=== PATIENT | female | born 1960 | race Caucasian/White ===

== ENCOUNTER 2016-05-06 12:19 | Emergency (ER) | payer OTHER ==
[2016-05-06 12:54] VITALS: BP 132/67
[2016-05-06] MEDS ORDERED: Ipratropium 0.5MG/2.5ML NEB* 0.5 MG/2.5 ML NEB.SOLN INH ONE (13:02)
--- NOTE | 2016-05-06 13:08 | UC ---
Respiratory Complaint HPI - HPI Summary HPI Summary: Started with dry cough about 3 weeks ago. Cough continued and gradually worsened , and this week getting more productive cough, SOB with exertion, and occ coughing fits that last several minutes. Denies fever or post-tussive vomiting. No nasal congestion or ST at beginning. Is waking up with nighttime symptoms. - History of Current Complaint Chief Complaint: UCGeneralIllness Stated Complaint: URI Time Seen by Provider: 05/06/16 12:55 Hx Obtained From: Patient ?: No Onset/Duration: Gradual Onset, Lasting Weeks Timing: Constant Severity Initially: Mild Severity Currently: Moderate - Allergies/Home Medications Allergies/Adverse Reactions: Allergies Allergy/AdvReac Type Severity Reaction Status Date / Time No Known Allergies Allergy Verified 10/12/15 14:00 PMH/Surg Hx/FS Hx/Imm Hx Previously Healthy: Yes Endocrine History Of: Denies: Diabetes, Thyroid Disease Cardiovascular History Of: Denies: Cardiac Disorders, Hypertension Respiratory History Of: Denies: COPD, Asthma GI/ History Of: Denies: Ulcer Cancer History Of: Denies: Breast Cancer - Surgical History Surgical History: Yes Surgery Procedure, Year, and Place: jaw surgery. bilat breast bx - Family History Known Family History: Positive: Hypertension - DAD Family History: MOM - ARRHYTHMIA S/P PACEMAKER, DAD - CANCER - Social History Lives: With Family Alcohol Use: Occasionally Substance Use Type: None Smoking Status (MU): Never Smoked Tobacco Review of Systems Constitutional: Negative Skin: Negative Eyes: Negative ENT: Negative Respiratory: Shortness Of Breath, Cough Cardiovascular: Negative Gastrointestinal: Negative Genitourinary: Negative Motor: Negative Neurovascular: Negative Musculoskeletal: Negative Neurological: Negative Psychological: Negative All Other Systems Reviewed And Are Negative: Yes Physical Exam Triage Information Reviewed: Yes Appearance: Ill-Appearing - constant coughing with difficulty speaking through exam Vital Signs: Initial Vital Signs Temp 97.8 F 05/06/16 12:50 Pulse 73 05/06/16 12:50 Resp 16 05/06/16 12:50 BP 132/67 05/06/16 12:50 Pulse Ox 99 05/06/16 12:50 Vital Signs Reviewed: Yes Eye Exam: Normal Eyes: Positive: Conjunctiva Clear ENT: Positive: Normal ENT inspection, Hearing grossly normal, Pharynx normal, TMs normal. Negative: Nasal congestion Dental Exam: Normal Neck exam: Normal Neck: Positive: Supple, Nontender, No Lymphadenopathy Respiratory Exam: Other - constant dry cough with gagging Respiratory: Positive: Chest non-tender, Lungs clear, Normal breath sounds Cardiovascular Exam: Normal Cardiovascular: Positive: RRR, No Murmur Musculoskeletal Exam: Normal Neurological Exam: Normal Psychological Exam: Normal Skin Exam: Normal UC Diagnostic Evaluation - Laboratory O2 Sat by Pulse Oximetry: 99 Respiratory Course/Dx - Differential Dx/Diagnosis Provider Diagnoses: bronchitis Discharge - Discharge Plan Condition: Stable Disposition: HOME Prescriptions: Acetaminop/Codeine 30 MG TAB* [Tylenol/Codeine 30 MG TAB*] 1 - 2 tab PO BEDTIME PRN #15 tab MDD 2 PRN Reason: Cough Azithromycin TAB* [Zithromax TAB*] 250 mg PO SEE INSTRUCTIONS #6 tab Benzonatate CAP* [Tessalon CAP*] 100 mg PO TID PRN #30 cap PRN Reason: Cough Ipratropium HFA INHALER* [Atrovent Hfa Inhaler*] 2 puff INH TID #1 mdi Patient Education Materials: Acute Bronchitis (ED) Referrals: Denys Street MD [Primary Care Provider] - 4 Days Additional Instructions: You are being tested and treated for pertussis (whooping cough) today. Please see your primary care provider this week for a recheck.
--- NOTE | 2016-05-06 13:42 | RAD ---
INDICATION: Cough COMPARISON: October 12, 2015 TECHNIQUE: PA and lateral dual-energy views were obtained. FINDINGS: Bones/Soft Tissues: There are no acute bony findings. Cardiomediastinal: The cardiomediastinal silhouette is normal. Lungs: There are no infiltrates. Pleura: There are no pleural effusions. Other: None IMPRESSION: NO ACTIVE DISEASE
== END 2016-05-06 13:53 | disposition home or self-care (01) ==
LOC: UCEAST 12:19
DX: J40 Bronchitis, not specified as acute or chronic (principal)
CPT/HCPCS: 71020; 87798; 99212; G0463; J7644

== ENCOUNTER 2018-04-23 07:45 | Emergency (ER) | payer OTHER ==
[2018-04-23 07:59] VITALS: BP 140/71
--- NOTE | 2018-04-23 09:07 | UC ---
Respiratory Complaint HPI - HPI Summary HPI Summary: 2 WEEKS OF PERSISTENT COUGH, CONGESTION WITH PURULENT NASAL DISCHARGE, INTERMITTENT LOW-GRADE FEVER, SORE THROAT AND SINUS CONGESTION. FEELS FATIGUED. EARS ARE PLUGGED. SX ARE NOT IMPROVING AT ALL. IS SUPPOSED TO BE TRAVELING OUT OF STATE TODAY FOR A CONFERENCE BUT DOES NOT FEEL WELL ENOUGH TO TRAVEL. - History of Current Complaint Chief Complaint: UCRespiratory Stated Complaint: FEVER COUGH RESP ISSUE Time Seen by Provider: 04/23/18 08:17 Hx Obtained From: Patient Onset/Duration: Gradual Onset, Lasting Weeks, Still Present Timing: Constant Severity Initially: Moderate Severity Currently: Moderate Pain Intensity: 4 Pain Scale Used: 0-10 Numeric Character: Cough: Productive Aggravating Factors: Nothing Alleviating Factors: Nothing Associated Signs And Symptoms: Positive: Fever, Chills, URI, Nasal Congestion, Sinus Discomfort. Negative: Wheezing - Allergies/Home Medications Allergies/Adverse Reactions: Allergies Allergy/AdvReac Type Severity Reaction Status Date / Time borax Allergy Hives Uncoded 04/23/18 07:59 Home Medications: Home Medications Elderberry Fruit/Honey [Little Remedies Cough-Immune] 1 dose PO Q3HR PRN [History Confirmed 04/23/18] GuaiFENesin DM sugar free* [Robitussin DM sugar free*] 10 ml PO Q4HR PRN [History Confirmed 04/23/18] PMH/Surg Hx/FS Hx/Imm Hx Previously Healthy: Yes - Surgical History Surgical History: Yes Surgery Procedure, Year, and Place: jaw surgery. bilat breast bx - Family History Known Family History: Positive: Hypertension - DAD Family History: MOM - ARRHYTHMIA S/P PACEMAKER, DAD - CANCER - Social History Alcohol Use: Occasionally Substance Use Type: None Smoking Status (MU): Never Smoked Tobacco Review of Systems All Other Systems Reviewed And Are Negative: Yes Constitutional: Positive: Fever, Chills, Fatigue ENT: Positive: Sore Throat, Ear Ache, Nasal Discharge, Sinus Congestion, Sinus Pain/Tenderness Respiratory: Positive: Cough Cardiovascular: Positive: Negative Gastrointestinal: Positive: Negative Neurological: Positive: Headache Physical Exam Triage Information Reviewed: Yes Appearance: No Pain Distress, Well-Nourished, Ill-Appearing - moderate Vital Signs: Initial Vital Signs Temp 98.9 F 04/23/18 07:54 Pulse 74 04/23/18 07:54 Resp 18 04/23/18 07:54 BP 140/71 04/23/18 07:54 Pulse Ox 96 04/23/18 07:54 Vital Signs Reviewed: Yes Eyes: Positive: Conjunctiva Clear ENT: Positive: Hearing grossly normal, Pharynx normal, Nasal congestion, Nasal drainage, TMs normal, Hoarse voice Neck: Positive: Supple, Nontender, No Lymphadenopathy Respiratory Exam: Normal Cardiovascular Exam: Normal Abdomen Description: Positive: Soft Musculoskeletal: Positive: No Edema Neurological: Positive: Alert Psychological: Positive: Age Appropriate Behavior Skin: Negative: Rashes UC Diagnostic Evaluation - Laboratory O2 Sat by Pulse Oximetry: 96 Respiratory Course/Dx - Differential Dx/Diagnosis Provider Diagnosis: Acute rhinosinusitis Discharge - Sign-Out/Discharge Documenting (check all that apply): Patient Departure All imaging exams completed and their final reports reviewed: No Studies - Discharge Plan Condition: Stable Disposition: HOME Prescriptions: Codeine Phosphate/Guaifenesin [Codeine-Guaifen 10-100 mg/5 ml] 5 - 10 ml PO Q6H PRN #150 ml MDD 40ML PRN Reason: Cough Doxycycline Monohydrate 1 cap PO BID #20 cap Fluconazole [Diflucan] 1 tab PO ONCE #2 tab Patient Education Materials: Rhinosinusitis (ED) Forms: *Gen. Provider Communication Referrals: Aby Morse MD [Primary Care Provider] - If Needed Additional Instructions: TAKE THE ANTIBIOTICS FOR THE FULL COURSE. BE AWARE THAT DOXYCYCLINE CAN MAKE YOU MORE SENSITIVE TO UV RAYS AND TAKE APPROPRIATE SUN PRECAUTIONS. REST, HYDRATE, OTC MEDS NEEDED. WILL ALSO GIVE COUGH MEDICINE. SEEK FOLLOW-UP IF YOU ARE NOT IMPROVING OVER THE NEXT 1-2 WEEKS. - Billing Disposition and Condition Condition: STABLE Disposition: Home
== END 2018-04-23 08:52 | disposition home or self-care (01) ==
LOC: UCEAST 07:45
DX: J01.90 Acute sinusitis, unspecified (principal)
CPT/HCPCS: 99212; G0463

== ENCOUNTER 2018-06-27 03:51 | Emergency (ER) | payer OTHER ==
[2018-06-27] MEDS ORDERED: NS 0.9% 1000 ML** 1,000 ML IV ONE ×2 (04:12→05:08)
[2018-06-27] MEDS ORDERED: Ondansetron INJ* 2 MG/ML VIAL IV ONE (04:14)
[2018-06-27] MEDS ORDERED: Diphenoxylat/Atrop 2.5-0.025M* 1 TAB PO ONE (04:14)
--- NOTE | 2018-06-27 04:15 | ED ---
GI/ HPI - HPI Summary HPI Summary: This pt is a 58 y/[facility], vomiting, and diarrhea since 22:00 last night, 06/26/18. She states she has had multiple episodes of emesis. Pt reports she has had about 4 episodes of diarrhea so far. She presents with a low grade fever of 100 F today. Additionally notes intermittent abd cramping. Pt states her and her ate the same thing during dinner last night. She notes she has not vomited like this in such a long time. Denies hx abdominal surgeries. - History of Current Complaint Chief Complaint: EDNauseaVomitDiarrh Time Seen by Provider: 06/27/18 04:06 Stated Complaint: VOMITING,DIFF BREATHING-PER PT Hx Obtained From: Patient Onset/Duration: Started Hours Ago, Still Present Timing: Lasting Hours Current Severity: Moderate Pain Intensity: 0 - denies any pain Associated Signs and Symptoms: Positive: Nausea, Vomiting, Diarrhea, Fever, Abdominal Pain Aggravating Factor(s): Nothing Alleviating Factor(s): Nothing - Allergy/Home Medications Allergies/Adverse Reactions: Allergies Allergy/AdvReac Type Severity Reaction Status Date / Time borax Allergy Hives Uncoded 04/23/18 07:59 PMH/Surg Hx/FS Hx/Imm Hx Endocrine/Hematology History: Denies: Hx Diabetes, Hx Thyroid Disease Cardiovascular History: Denies: Hx Hypertension Comment Only: Other Cardiovascular Problems/Disorders - MYTROVALVE PROLAPSE Respiratory History: Denies: Hx Asthma, Hx Chronic Obstructive Pulmonary Disease (COPD) GI History: Denies: Hx Ulcer - Cancer History Hx Chemotherapy: No Hx Radiation Therapy: No - Surgical History Surgery Procedure, Year, and Place: jaw surgery. bilat breast bx Infectious Disease History: No Infectious Disease History: Reports: Hx Shingles Denies: Hx Hepatitis, Hx Human Immunodeficiency Virus (HIV), History Other Infectious Disease, Traveled Outside the [place] in Last 30 Days - Family History Known Family History: Positive: Hypertension - DAD Family History: MOM - ARRHYTHMIA S/P PACEMAKER, DAD - CANCER - Social History Alcohol Use: Occasionally Hx Substance Use: No Substance Use Type: Reports: None Hx Tobacco Use: No Smoking Status (MU): Never Smoked Tobacco Review of Systems Positive: Fever - low grade Positive: Abdominal Pain, Vomiting, Diarrhea, Nausea All Other Systems Reviewed And Are Negative: Yes Physical Exam - Summary Physical Exam Summary: VITAL SIGNS: Reviewed. GENERAL: Patient is a well-developed and nourished female who is lying comfortable in the stretcher. Patient is not in any acute respiratory distress. HEAD AND FACE: No signs of trauma. No ecchymosis, hematomas or skull depressions. No sinus tenderness. EYES: PERRLA, EOMI x 2, No injected conjunctiva, no nystagmus. EARS: Hearing grossly intact. Ear canals and tympanic membranes are within normal limits. MOUTH: Oropharynx within normal limits. NECK: Supple, trachea is midline, no adenopathy, no JVD, no carotid bruit, no c- spine tenderness, neck with full ROM. CHEST: Symmetric, no tenderness at palpation LUNGS: Clear to auscultation bilaterally. No wheezing or crackles. CVS: Regular rate and rhythm, S1 and S2 present, no murmurs or gallops appreciated. ABDOMEN: Soft, non-tender. No signs of distention. No rebound no guarding, and no masses palpated. Hyperactive bowel sounds. EXTREMITIES: FROM in all major joints, no edema, no cyanosis or clubbing. NEURO: Alert and oriented x 3. No acute neurological deficits. Speech is normal and follows commands. SKIN: Dry and warm Triage Information Reviewed: Yes Vital Signs On Initial Exam: Initial Vitals Temp Pulse Resp BP Pulse Ox 100 F 80 18 134/86 100 06/27/18 04:00 06/27/18 04:00 06/27/18 04:00 06/27/18 04:00 06/27/18 04:00 Vital Signs Reviewed: Yes Diagnostics - Vital Signs Vital Signs Temp Pulse Resp BP Pulse Ox 06/27/18 04:02 81 134/86 99 06/27/18 04:00 100 F 77 18 134/86 100 - Laboratory Result Diagrams: 06/27/18 04:22 06/27/18 04:22 Lab Statement: Any lab studies that have been ordered have been reviewed, and results considered in the medical decision making process. GIGU Course/Dx - Course Assessment/Plan: Pt is a 58 y/o female who presents with nausea, vomiting, and diarrhea since 22:00 last night, 06/26/18. Pt reports she has had about 4 episodes of diarrhea so far. She presents with a low grade fever of 100 F today. Additionally notes intermittent abd cramping. Pt states her and her ate the same thing during dinner last night. She notes she has not vomited in such a long time. Labs remarkable for WBC of 13.2. In the ED course the pt was given IV fluids, Reglan, Zofran, Lomotil, Tylenol. CT abdomen/pelvis was ordered. Pt will be signed out to Dr. Mcgarry, pending disposition, awaiting CT. - Diagnoses Provider Diagnoses: Abdominal pain Discharge - Sign-Out/Discharge Documenting (check all that apply): Sign-Out Patient Signing out patient TO: Dilshad Mcgarry - pending CT and dispo Patient Received Moderate/Deep Sedation with Procedure: No - Discharge Plan Condition: Stable Referrals: Aby Morse MD [Primary Care Provider] - - Attestation Statements Document Initiated by Scribe: Yes Documenting Scribe: Karime Saab Provider For Whom Scribe is Documenting (Include Credential): Gabriel Dietrich MD Scribe Attestation: IKarime, scribed for Gabriel Dietrich MD on 06/27/18 at 0656. Status of Scribe Document: Ready
[2018-06-27 04:30] LABS: ABS Basophils 0 10^3/ul (0-0.2); ABS Eosinophils 0 10^3/ul (0-0.6); ABS Lymphocytes 0.3 10^3/ul (1.0-4.8); ABS Monocytes 0.4 10^3/ul (0-0.8); ABS Neutrophils 12.4 10^3/ul (1.5-7.7); ABS Nucleated RBC 0 10^3/ul; Eosinophil % 0.1 %; Hematocrit 42 % (35-47); Hemoglobin 14.2 g/dl (12.0-16.0); Lymphocyte % 2.2 %; Mean Corpuscular HGB Conc 34 g/dl (31-36); Mean Corpuscular Hemoglobin 31 pg (27-31); Mean Corpuscular Volume 93 fL (80-97); Mean Platelet Volume 8.1 fL (7.4-10.4); Nucleated Red Blood Cells % 0; Platelet Count 168 10^3/ul (150-450); Red Blood Count 4.52 10^6/ul (4.00-5.40); Red Cell Distribution Width 13 % (10.5-15); White Blood Count 13.2 10^3/ul (3.5-10.8)
[2018-06-27 04:47] LABS: Albumin 4.3 g/dL (3.2-5.2); Albumin/Globulin Ratio 1.7 (1-3); BUN/Creatinine Ratio 23.1 (8-20); C Reactive Protein 5.39 mg/L (<8.01); Calcium 9.1 mg/dL (8.6-10.3); EGFR African American 91.8 (>60); EGFR Non-African American 75.9 (>60); Globulin 2.5 g/dL (2-4); Magnesium 1.7 mg/dL (1.9-2.7); Potassium 4.1 mmol/L (3.5-5.0); Total Bilirubin 0.8 mg/dL (0.2-1.0); Total Protein 6.8 g/dL (6.4-8.9)
[2018-06-27 05:08] LABS: Urine Appearance Clear; Urine Bilirubin Negative (Negative); Urine Blood Negative (Negative); Urine Color Yellow; Urine Glucose Negative (Negative); Urine Ketones Trace (Negative); Urine Nitrite Negative (Negative); Urine Protein Negative (Negative); Urine Specific Gravity 1.018 (1.010-1.030); Urine Urobilinogen Negative (Negative)
[2018-06-27] MEDS ORDERED: Metoclopramide IV* 5 MG/ML 2 ML VIAL IV SLOW PU ONE (05:08)
[2018-06-27] MEDS ORDERED: Acetaminophen TAB* 325 MG PO ONE (05:20)
[2018-06-27] MEDS ORDERED: Iohexol 300* (CONTRAST) 10 ML SDV IV ONE (05:32)
--- NOTE | 2018-06-27 07:22 | ED ---
Progress - Progress Note Progress Note: Receiving sign out from Dr. Dietrich, pending CT A/P. CT A/P: 1. Left renal lesion, probably cyst. 2. Retroverted uterus. 3. Small hiatus hernia. ED physician reviewed radiology report. Pt's condition has been stable. Pt will be discharged home with a final dx of gastroenteritis. She is agreeable with this plan. Re-Evaluation - Re-Evaluation First Eval Re-Evaluation Time: 07:40 Change: Improved Comment: Pt feels much better. Course/Dx - Diagnoses Provider Diagnoses: Abdominal pain Discharge - Sign-Out/Discharge Documenting (check all that apply): Patient Departure - Discharge, Receiving Sign-Out Receiving patient FROM: Gabriel Dietrich Patient Received Moderate/Deep Sedation with Procedure: No - Discharge Plan Condition: Stable Disposition: HOME Prescriptions: Ondansetron ODT TAB* [Zofran Odt TAB*] 4 mg PO Q6H PRN #20 tab.odt PRN Reason: Nausea/Vomiting Patient Education Materials: Gastroenteritis (ED) Referrals: Aby Morse MD [Primary Care Provider] - - Billing Disposition and Condition Condition: STABLE Disposition: Home - Attestation Statements Document Initiated by Scribe: Yes Documenting Scribe: Marsha Patel Provider For Whom Scribe is Documenting (Include Credential): Dilshad Mcgarry MD Scribe Attestation: Marsha Diaz, scrpoojaed for Dilshad Mcgarry MD on 06/27/18 at 0813. Scribe Documentation Reviewed: Yes Provider Attestation: The documentation as recorded by the Marsha hu accurately reflects the service I personally performed and the decisions made by me, Dilshad Mcgarry MD Status of Scribe Document: Viewed
[2018-06-27 07:52] VITALS: BP 104/56
== END 2018-06-27 08:02 | disposition home or self-care (01) ==
LOC: ED 03:51
DX: R10.9 Unspecified abdominal pain (principal); R11.2 Nausea with vomiting, unspecified; R19.7 Diarrhea, unspecified; R50.9 Fever, unspecified; N28.9 Disorder of kidney and ureter, unspecified; K44.9 Diaphragmatic hernia without obstruction or gangrene
CPT/HCPCS: 36415; 74177; 80053; 81003; 82150; 83690; 83735; 85025; 86140; 96361; 96374; 96375; 99284; A9270-GY; J2405; J2765; Q9967

== ENCOUNTER 2019-01-05 17:44 | Emergency (ER) | payer OTHER ==
[2019-01-05 17:59] VITALS: BP 126/79
[2019-01-05] MEDS ORDERED: Cephalexin CAP* 500 MG PO ONE (18:04)
--- NOTE | 2019-01-05 18:07 | UC ---
Skin Complaint HPI - HPI Summary HPI Summary: The patient is a 58 yo female that was stung on her left elbow about 10 days ago by a yellow jacket It has been itchy every since she now has redness and swelling in the area no f/c some mild malaise - History of Current Complaint Chief Complaint: UCSkin Time Seen by Provider: 01/05/19 17:53 Stated Complaint: SKIN COMPLAINT Hx Obtained From: Patient Onset/Duration: Sudden Onset, Lasting Days Skin Exposure Onset/Duration: Hours Ago Onset Severity: Moderate Current Severity: Moderate Pain Intensity: 5 Pain Scale Used: 0-10 Numeric Location: Discrete Character: Swelling, Pruritus, Pain Aggravating Factor(s): Touch Alleviating Factor(s): Nothing Associated Signs & Symptoms: Positive: Tenderness. Negative: Nausea, Vomiting, Numbness, Thirst, Diaphoresis, Weakness, Pallor, Shivering, Difficulty Breathing , Fever, Chills, Cough, Wheezing, Chest Pain, Hoarseness, Throat Tightening, Abdominal Pain, Lightheadedness, Syncope, Drainage, Bruising, Red Streaks, Joint Swelling Related History: Insect Bite/Sting - Allergy/Home Medications Allergies/Adverse Reactions: Allergies Allergy/AdvReac Type Severity Reaction Status Date / Time borax Allergy Hives Uncoded 01/05/19 17:55 Home Medications: Home Medications Cbd Oil 01/05/19 [History] Multivitamin [Multivitamins] 1 cap PO DAILY 01/05/19 [History Confirmed 01/05/19 ] PMH/Surg Hx/FS Hx/Imm Hx Previously Healthy: Yes - Surgical History Surgical History: Yes Surgery Procedure, Year, and Place: jaw surgery. bilat breast bx - Family History Known Family History: Positive: Hypertension - DAD, Non-Contributory Family History: MOM - ARRHYTHMIA S/P PACEMAKER, DAD - CANCER - Social History Alcohol Use: Occasionally Substance Use Type: None Smoking Status (MU): Never Smoked Tobacco Review of Systems All Other Systems Reviewed And Are Negative: Yes Constitutional: Positive: Negative Skin: Positive: Negative Eyes: Positive: Negative ENT: Positive: Negative Respiratory: Positive: Negative Cardiovascular: Positive: Negative Gastrointestinal: Positive: Negative Genitourinary: Positive: Negative Motor: Positive: Negative Neurovascular: Positive: Negative Musculoskeletal: Positive: Negative Neurological: Positive: Negative Psychological: Positive: Negative Physical Exam Triage Information Reviewed: Yes Appearance: Well-Appearing, No Pain Distress, Well-Nourished Vital Signs: Initial Vital Signs Temp 98.8 F 01/05/19 17:56 Pulse 61 01/05/19 17:56 Resp 18 01/05/19 17:56 BP 126/79 01/05/19 17:56 Pulse Ox 99 01/05/19 17:56 Vital Signs Reviewed: Yes Eyes: Positive: Conjunctiva Clear ENT: Positive: Hearing grossly normal. Negative: Nasal congestion, Nasal drainage, Trismus, Muffled voice, Hoarse voice Neck: Positive: Supple, Nontender, No Lymphadenopathy Respiratory: Positive: Lungs clear, Normal breath sounds, No respiratory distress Cardiovascular: Positive: RRR, No Murmur, Pulses Normal Musculoskeletal: Positive: ROM Intact, No Edema Neurological: Positive: Alert Psychological: Positive: Normal Response To Family Skin Exam: Other - see image Images Front/Back of Body, Lg (Porter): 1 - excoriated sting site 2 - surrounding erthyema/swelling Course/Dx - Diagnoses Provider Diagnosis: Sting, wasp, Left arm cellulitis Discharge ED - Sign-Out/Discharge Documenting (check all that apply): Patient Departure All imaging exams completed and their final reports reviewed: No Studies - Discharge Plan Condition: Stable Disposition: HOME Prescriptions: Cephalexin CAP* [Keflex CAP*] 500 mg PO QID #28 cap predniSONE [Deltasone 20 MG TAB] 40 mg PO DAILY #10 tab Patient Education Materials: Cellulitis (ED), Insect Bite or Sting (ED) Referrals: Aby Morse MD [Primary Care Provider] - 4 Days (if not better) - Billing Disposition and Condition Condition: STABLE Disposition: Home
== END 2019-01-05 18:18 | disposition home or self-care (01) ==
LOC: UCEAST 17:44
DX: T63.461A Toxic effect of venom of wasps, accidental (unintentional), initial encounter (principal); Y92.9 Unspecified place or not applicable; L03.114 Cellulitis of left upper limb
CPT/HCPCS: 99212; A9270-GY; G0463